=== PATIENT | female | born 1935 | race American Indian/Alaskan Native ===

== ENCOUNTER 2017-02-26 08:26 | Outpatient (CLI) | payer MEDICARE ==
--- NOTE | 2017-02-26 08:55 | XRay Report ---
LEFT FOOT, 3 VIEWS History: Cellulitis, pain. Findings: No comparison. There is mild osteopenia. A moderate hallux valgus deformity is identified. Mild diffuse degenerative changes. No erosive joint pathology, fracture or bony destruction. No evidence for osteomyelitis. Large plantar spur is noted. There is suggestion of ulceration on the dorsum of the foot. No soft tissue gas is appreciated. Impression: Osteopenia. Degenerative changes. Hallux valgus deformity. Plantar spur. Soft tissue findings as described. No convincing evidence for osteomyelitis on x-ray.
== END 2017-02-26 08:27 | disposition home or self-care (01) ==
LOC: XRAY 08:26
PROVIDERS: ATTEND Internal Medicine Hematology & Oncology
DX: M19.072 Primary osteoarthritis, left ankle and foot (principal); L03.116 Cellulitis of left lower limb; M20.12 Hallux valgus (acquired), left foot; M85.872 Other specified disorders of bone density and structure, left ankle and foot; M25.872 Other specified joint disorders, left ankle and foot

== ENCOUNTER 2019-01-28 09:28 | Outpatient (CLI) | payer MEDICARE ==
--- NOTE | 2019-01-28 10:36 | XRay Report ---
BILATERAL KNEES, 3 VIEWS INDICATION: BILATERAL KNEE PAIN. COMPARISON: None. IMPRESSION: There is borderline bone mineralization. Mild joint space narrowing in the medial compar tment and patellofemoral space is identified bilaterally. There is relative sparing of the lateral co mpartments. No evidence for fracture, bone lesion, osteochondral defect or large joint effusion. The soft tissues are unremarkable. Signer Name: Osito Anand Jr, MD Signed: 01/28/2019 10:32 AM Workstation Name: [id number]
== END 2019-01-28 09:29 | disposition home or self-care (01) ==
LOC: XRAY 09:28
PROVIDERS: ATTEND Internal Medicine Hematology & Oncology
DX: M25.561 Pain in right knee (principal); M25.562 Pain in left knee